=== PATIENT | male | born 1970 | race Hispanic/Latino ===

== ENCOUNTER 2017-02-08 15:00 | Emergency (ER) | payer OTHER ==
--- NOTE | 2017-02-08 15:31 | ED.PDOC ---
History of Present Illness - General Chief Complaint: Laceration Stated Complaint: laceration to right lower leg Time Seen by Provider: 02/08/17 15:22 Source: patient, RN notes reviewed, Vital Signs reviewed, other - co-worker Exam Limitations: no limitations - History of Present Illness Initial Comments: Patient presents to ER with R tibia injury and laceration. He was jumping off a piece of equipment at work and landed on a metal piece protruding from the side. He is having a lot of pain on his right proximal tibia. Timing/Duration: just prior to arrival Severity: moderate Location: extremities - R lower leg Improving Factors: rest Worsening Factors: movement Associated Symptoms: swelling/mass/lumps Allergies/Adverse Reactions: Allergies NO KNOWN ALLERGY Allergy (Verified 02/08/17 15:27) Home Medications: Ambulatory Orders Unobtainable [Unobtainable] 02/08/17 Review of Systems - Review of Systems Constitutional: States: no symptoms reported Respiratory: States: no symptoms reported Cardiology: States: no symptoms reported Gastrointestinal/Abdominal: States: no symptoms reported Musculoskeletal: States: see HPI Skin: States: see HPI Neurological: Denies: numbness, paresthesia, tingling, weakness All other Systems: No Change from Baseline Past Medical History (General) - Patient Medical History Hx Congestive Heart Failure: No Hx Diabetes: No Surgical History: no surgical history - Vaccination History Hx Tetanus, Diphtheria Vaccination: Yes - 3 years ago - Social History Hx Tobacco Use: Yes Family Medical History - Family History Father Family History: Unknown Living Status: Unknown Physical Exam - Physical Exam General Appearance: Alert, Comfortable, No apparent distress, Well Developed, Well Groomed, Well Hydrated, Well Nourished Cardiovascular/Chest: normal peripheral pulses Extremity: deformity - R proximal tibia: U shaped laceration anteriorly with swelling and jame tenderness. Lower leg, ankle and toes are normal. Neurologic: no motor/sensory deficits, alert, normal mood/affect, oriented x 3 Skin Exam: warm/dry, normal color Skin Problem Location: lower extremities Skin Character: other - U shaped ~3-4cm laceration anterior, proximal ochoa Progress - EKG/XRAY/CT XRAY: Tibia: no fracture per Rad Procedures - Laceration/Wound Repair Right Anterior Proximal Calf Wound Length (cm): 3 Wound's Depth, Shape: superficial, flap Wound Explored: no foreign body removed Irrigated w/ Saline (cc's): 100 - scrubbed with betatine surgical brush Betadine Prep?: Yes Anesthesia: Lidocaine w/ Epi Volume Anesthetic (cc's): 3.5 Wound Debrided: minimal Wound Repaired With: sutures Suture Size/Type: 4:0, prolene Number of Sutures: 4 Layer Closure?: No Sterile Dressing Applied?: Yes Departure - Departure Clinical Impression: Laceration of lower leg, right Qualifiers: Encounter type: initial encounter Qualified Code(s): S81.811A - Laceration without foreign body, right lower leg, initial encounter Time of Disposition: 16:26 Disposition: Discharge to Home or Self Care Condition: Good Departure Forms: ED Discharge - Pt. Copy, Patient Portal Self Enrollment Instructions: DI for Laceration Repair -- Simple Diet: resume usual diet Activity: increase activity as tolerated Home Medications: Ambulatory Orders Unobtainable [Unobtainable] 02/08/17 Additional Instructions: Suture removal in 7 days Keep clean, dry and dress with antibiotic ointment twice daily
[2017-02-08 15:49] VITALS: BP 141/85; TEMP 97.6; O2SAT 96
--- NOTE | 2017-02-08 15:57 | RAD ---
Frontal and lateral views of the right tibia/fibula. Indication: Hit on metal jumping off piece of equipment Comparison: None. Impression: Prominent soft tissue swelling anterior aspect of the proximal right lower leg with suspected laceration. No radiopaque foreign body. No acute fracture or malalignment. Multiple scattered tiny calcifications throughout the right lower leg, likely vascular. Electronically signed by: Aaron Barrientos MD 02/08/2017 3:55 PM CDT
[2017-02-08] MEDS ORDERED: LIDOCAINE 2% W/ EPINEPHRINE 20 ML VIAL INJ ONE ×2 (15:58→15:59)
[2017-02-08] MEDS ORDERED: NEOMYCIN-BACITRACIN-POLYMYXIN 0.9 GM UD TOP ONE (15:58)
[2017-02-08] MEDS ORDERED: CHLORHEXIDINE GLUCONATE 4 % 15 ML UD TOP ONE (16:03)
== END 2017-02-08 16:38 | disposition home or self-care (01) ==
LOC: ER 15:00
DX: S81.811A Laceration without foreign body, right lower leg, initial encounter (principal); Z23 Encounter for immunization; W45.8XXA Other foreign body or object entering through skin, initial encounter; Y92.89 Other specified places as the place of occurrence of the external cause; Y99.0 Civilian activity done for income or pay

== ENCOUNTER 2017-02-23 17:38 | Emergency (ER) | payer OTHER ==
[2017-02-23 18:07] VITALS: TEMP 98.1
--- NOTE | 2017-02-23 18:08 | ED.PDOC ---
History of Present Illness - General Chief Complaint: Skin/Abrasion/Tear Stated Complaint: poss wound infection Time Seen by Provider: 02/23/17 18:08 Source: patient Exam Limitations: no limitations - History of Present Illness Initial Comments: Mike Dhillon 46 y/o male with primary wound closure of laceration after he had work related injury to his right leg and was sutured on 02/08/2017 then removal of sutures done after 11 days then had dehiscence of wound.No fever ,no chills,no pain on weight bearing. Timing/Duration: other - 3 days ago Severity: mild Location: extremities - right leg Improving Factors: nothing Worsening Factors: nothing Associated Symptoms: other - see hpi Allergies/Adverse Reactions: Allergies NO KNOWN ALLERGY Allergy (Verified 02/08/17 15:27) Home Medications: Ambulatory Orders Cephalexin 1,000 mg PO BID #30 cap 02/23/17 Mupirocin 2 % Oint [Bactroban Oint] 22 gm TOP BID #1 tube 02/23/17 Review of Systems - Review of Systems All other Systems: Reviewed and Negative, No Change from Baseline Past Medical History (General) - Patient Medical History Hx Congestive Heart Failure: No Hx Diabetes: No Surgical History: no surgical history - Vaccination History Hx Tetanus, Diphtheria Vaccination: Yes Hx Influenza Vaccination: No - Social History Hx Tobacco Use: Yes Family Medical History - Family History Father Family History: Unknown Living Status: Unknown Physical Exam - Physical Exam General Appearance: Alert, No apparent distress Eyes, Ears, Nose, Throat Exam: normal ENT inspection Neck: non-tender, supple Cardiovascular/Chest: regular rate, rhythm, no murmur Respiratory: lungs clear, normal breath sounds Gastrointestinal/Abdominal: non tender, soft Extremity: no pedal edema, no calf tenderness Neurologic: alert, oriented x 3 Skin Exam: warm/dry, normal color Skin Problem Location: lower extremities - left Skin Character: other - open wound with serous fluid distal 3rd right leg Progress - Progress Progress: 02/23/17 18:35 Vital Signs - 8 hr 02/23/17 18:02 Temperature 98.1 F Pulse Rate [ 123 H Left Brachial] Respiratory 20 Rate Blood Pressure 135/97 [Left Arm] O2 Sat by Pulse 95 Oximetry Wound care done -cleanse w/ sterile water applied neosporin and covered with sterile dressing - EKG/XRAY/CT XRAY: tib/fib-right:no acute abnormalities Departure - Departure Clinical Impression: Wound dehiscence, external operation Qualifiers: Encounter type: initial encounter Qualified Code(s): T81.31XA - Disruption of external operation (surgical) wound, not elsewhere classified, initial encounter Time of Disposition: 19:14 Disposition: Discharge to Home or Self Care Condition: Good Departure Forms: ED Discharge - Pt. Copy, Patient Portal Self Enrollment Instructions: Wound Dehiscence, DI for Wound Dehiscence Prescriptions: Cephalexin 1,000 mg PO BID #30 cap Mupirocin 2 % Oint [Bactroban Oint] 22 gm TOP BID #1 tube Home Medications: Ambulatory Orders Cephalexin 1,000 mg PO BID #30 cap 02/23/17 Mupirocin 2 % Oint [Bactroban Oint] 22 gm TOP BID #1 tube 02/23/17 Additional Instructions: Follow up with primary md if not better in 14 days
[2017-02-23] MEDS ORDERED: NEOMYCIN-BACITRACIN-POLYMYXIN 0.9 GM UD TOP ONE (18:32)
[2017-02-23] MEDS ORDERED: CEPHALEXIN MONOHYDRATE 500 MG CAP PO ONE (18:34)
--- NOTE | 2017-02-23 19:08 | RAD ---
EXAM DESCRIPTION: Tibia/Fibula,Right CLINICAL HISTORY: pain COMPARISON: 02/08/2017 FINDINGS: 2 views were submitted. No fracture or dislocation is identified. Bone marrow attenuation is unremarkable. No radiopaque foreign body is identified. Anterior soft tissue laceration is again seen. No radiopaque foreign body is seen at the site of laceration. Presumably vascular calcifications are again seen. IMPRESSION: No acute fracture or dislocation. Electronically signed by: Alphonse Ching 02/23/2017 7:07 PM CDT
[2017-02-23 19:30] VITALS: BP 126/78; O2SAT 97
== END 2017-02-23 19:30 | disposition home or self-care (01) ==
LOC: ER 17:38
DX: T81.31XA Disruption of external operation (surgical) wound, not elsewhere classified, initial encounter (principal); Z87.891 Personal history of nicotine dependence